=== PATIENT | female | born 1970 | race Caucasian/White ===

== ENCOUNTER 2017-05-30 11:09 | Emergency (ER) | payer OTHER ==
[~2017-05-30] VITALS: Ht 160 cm; Wt 120.7 kg
[2017-05-30 12:00] VITALS: BP 134/83
== END 2017-05-30 12:00 | disposition home or self-care (01) ==
LOC: ER 11:09
DX: M25.561 Pain in right knee (principal); Z96.651 Presence of right artificial knee joint

== ENCOUNTER 2018-12-03 02:33 | Emergency (ER) | payer OTHER ==
[~2018-12-03] VITALS: Ht 160 cm; Wt 127.5 kg
[2018-12-03] MEDS ORDERED: COZAAR 25 MG TA25 M1 PO (02:45)
[2018-12-03] MEDS ORDERED: LEXAPRO20 MG PO (02:46)
[2018-12-03] MEDS ORDERED: PROTONIX40 M1 PO (02:46)
[2018-12-03] MEDS ORDERED: ATENOLOL 50MG T50 M1 PO (02:46)
[2018-12-03] MEDS ORDERED: ABILIFY 5 MG TAB5 MG PO (02:47)
[2018-12-03] MEDS ORDERED: BUSPIRONE HCL10 MG PO (02:47)
[2018-12-03] MEDS ORDERED: PERCOCET 7.5-31 EACH PO (02:47)
[2018-12-03] MEDS ORDERED: HYSINGLA ER20 MG PO (02:48)
[2018-12-03] MEDS ORDERED: METFORMIN HCL500 MG PO (02:49)
[2018-12-03] MEDS ORDERED: VITAMIN D5000 UNIT PO (02:49)
[2018-12-03] MEDS ORDERED: OXYBUTYNIN 5 MG5 M2 PO (02:49)
[2018-12-03] MEDS ORDERED: VICTOZA 3-0.6 MG/0.1 SUBQ (02:50)
[2018-12-03] MEDS ORDERED: TESSALON PERLE100 MG PO (03:16)
[2018-12-03] MEDS ORDERED: AUGMENTIN 500-1 EACH PO (03:16)
[2018-12-03] MEDS ORDERED: PREDNISONE 20 M20 MG PO (03:16)
[2018-12-03 03:44] VITALS: BP 108/53
== END 2018-12-03 03:55 | disposition home or self-care (01) ==
LOC: ER 02:33
DX: J20.9 Acute bronchitis, unspecified (principal); J04.0 Acute laryngitis; F17.210 Nicotine dependence, cigarettes, uncomplicated; Z96.651 Presence of right artificial knee joint